=== PATIENT | male | born 2000 | race African-American/Black ===

== ENCOUNTER 2020-10-01 23:44 | Emergency (ER) | payer MEDICAID, OTHER ==
[~2020-10-01] VITALS: Ht 170.2 cm; Wt 160.0 kg
[~2020-10-01 23:44] MED LIST: ALBU17AE27
[2020-10-02] MEDS ORDERED: PERTUSS(ACELL),DIPH,TET VAC/PF 0.5 ML SYRINGE IM. ONE (01:30)
[2020-10-02 02:00] VITALS: BP 124/74
[2020-10-02] MEDS ORDERED: BACITRACIN 0.9 GM PACKET OINTMENT TP ONE (02:00)
== END 2020-10-02 02:40 | disposition home or self-care (01) ==
LOC: EMS 23:48
DX: S50.312A Abrasion of left elbow, initial encounter (principal); J45.909 Unspecified asthma, uncomplicated; V00.131A Fall from skateboard, initial encounter; Y93.51 Activity, roller skating (inline) and skateboarding; Y92.89 Other specified places as the place of occurrence of the external cause; Y99.8 Other external cause status
CPT/HCPCS: 90471; 90715; 99283

== ENCOUNTER 2020-12-11 21:16 | Emergency (ER) | payer MEDICAID ==
[~2020-12-11] VITALS: Ht 170.2 cm; Wt 70.5 kg
[2020-12-12] MEDS ORDERED: ACETAMINOPHEN 325 MG TABLET PO ONE
[2020-12-12 00:35] VITALS: BP 142/78
== END 2020-12-12 00:42 | disposition home or self-care (01) ==
LOC: EMS 21:19
DX: S09.90XA Unspecified injury of head, initial encounter (principal); J45.909 Unspecified asthma, uncomplicated; F17.200 Nicotine dependence, unspecified, uncomplicated; F12.90 Cannabis use, unspecified, uncomplicated; V00.131A Fall from skateboard, initial encounter; Y93.51 Activity, roller skating (inline) and skateboarding; Y92.89 Other specified places as the place of occurrence of the external cause; Y99.8 Other external cause status
CPT/HCPCS: 70450; 99284

== ENCOUNTER 2022-11-13 05:28 | Inpatient (IN) | payer MEDICAID ==
[~2022-11-13] VITALS: Ht 170.2 cm; Wt 58.1 kg
[2022-11-13] MEDS ORDERED: HALOPERIDOL LACTATE 5 MG/ML VIAL IM ONE (06:45)
[2022-11-13] MEDS ORDERED: LORazepam 2 MG/ML VIAL IM ONE (06:45)
[2022-11-13] MEDS ORDERED: DiphenhydrAMINE HCL 50 MG/ML VIAL IM ONE (06:45)
[2022-11-13] MEDS ORDERED: HALOPERIDOL LACTATE 5 MG/ML VIAL ONE (06:48)
[2022-11-13] MEDS ORDERED: LORazepam 2 MG/ML VIAL ONE (06:48)
[2022-11-13] MEDS ORDERED: DiphenhydrAMINE HCL 50 MG/ML VIAL ONE (06:48)
[2022-11-13 07:15] VITALS: BP 135/63; PULSE 83; RESP 18; TEMP 98.1
[2022-11-13 09:05] VITALS: RESP 18
[2022-11-13 12:11] LABS: GLUCOMETER DEV NAME(LOC) POC.BV
[2022-11-13 20:15] VITALS: BP 124/66; PULSE 70; RESP 18; TEMP 98.2; O2SAT 97
[2022-11-14] MEDS ORDERED: ZOLPIDEM TARTRATE 10 MG TABLET PO PRN (07:15)
[2022-11-14] MEDS ORDERED: LORazepam 2 MG TABLET PO PRN (07:15)
[2022-11-14] MEDS ORDERED: HALOPERIDOL 5 MG TABLET PO PRN (07:15)
[2022-11-14 07:52] LABS: BASOPHILS % (AUTO) 0.3 % (0.0-2.0); EOSINOPHILS % (AUTO) 1.8 % (1.0-6.0); HEMATOCRIT 40.7 % (41-53); HEMOGLOBIN 13.5 g/dL (13.5-17.5); LYMPHOCYTES # (AUTO) 2.4 K/uL (1.0-4.8); LYMPHOCYTES % (AUTO) 38.5 % (22.0-44.0); MEAN CORPUSCULAR HEMOGLOBIN 29.9 pg (26.0-34.0); MEAN CORPUSCULAR HGB CONC 33.1 G/dL (31.0-37.0); MEAN CORPUSCULAR VOLUME 90 fL (80-100); MONOCYTES # (AUTO) 0.7 K/uL (0.1-1.0); MONOCYTES % (AUTO) 10.9 % (2.0-9.0); NEUTROPHILS % (AUTO) 48.5 % (40.0-70.0); PLATELET COUNT (AUTO) 423 K/uL (150-450); RED BLOOD CELL COUNT(AUTO) 4.51 MIL/uL (4.50-5.90); RED CELL DISTRIBUTION WIDTH 13.4 % (11.5-14.5)
[2022-11-14 08:15] VITALS: BP 111/66; PULSE 83; RESP 18; TEMP 98; O2SAT 97
[2022-11-14 08:18] LABS: ALANINE AMINOTRANSFERASE 29 U/L (12-78); ALBUMIN 3.3 g/dL (3.4-5.0); ALKALINE PHOSPHATASE 55 U/L (46-116); ANION GAP 11 mmol/L (8-16); ASPARTATE AMINOTRANSFERASE 64 U/L (15-37); BILIRUBIN,TOTAL 0.6 mg/dL (0.1-1.0); CALCIUM, TOTAL 8.9 mg/dL (8.8-10.5); CARBON DIOXIDE 28 mmol/L (22-29); CHLORIDE 102 mmol/L (98-107); CHOL/HDL RATIO 5.2 (4.2-7.3); CHOLESTEROL 134 mg/dL (131-200); FREE T4 (FREE THYROXINE) 1.48 ng/dL (0.76-1.46); GLOMERULAR FILTR. RATE CALC > 60 mL/min (>60); GLUCOSE,RANDOM 95 mg/dL (70-110); HDL CHOLESTEROL 26 mg/dL (40-60); LDL CHOL (CALC.) 97 mg/dL (0-130); POTASSIUM 3.9 mmol/L (3.5-5.1); SODIUM SERUM 141 mmol/L (136-145); TOTAL PROTEIN, SERUM 7.4 g/dL (6.4-8.2); TRIGLYCERIDES 53 mg/dL (15-150)
[2022-11-14] MEDS ORDERED: NICOTINE 14 MG/24 HOUR PATCH TD PRN (12:45)
[2022-11-14] MEDS ORDERED: GuaiFENesin/D-METHORPHAN [SUGAR-FREE] 200-20MG/10 ML SYRUP UDCUP PO PRN (12:45)
[2022-11-14] MEDS ORDERED: MAG HYDROX/AL HYDROX/SIMETH ES 30 ML SUSPENSION UDCUP PO PRN (12:45)
[2022-11-14] MEDS ORDERED: DOCUSATE SODIUM 100 MG CAPSULE PO PRN (12:45)
[2022-11-14] MEDS ORDERED: LOPERAMIDE HCL 2 MG CAPSULE PO PRN (12:45)
[2022-11-14] MEDS ORDERED: ALBUTEROL SULFATE HFA 90 MCG/PUFF 8 GM INHALER IH PRN (12:45)
[2022-11-14] MEDS ORDERED: MAGNESIUM HYDROXIDE SUSPENSION 30 ML UDCUP PO PRN (12:45)
[2022-11-14] MEDS ORDERED: CloNIDine HCL 0.1 MG TABLET PO PRN (12:45)
[2022-11-14] MEDS ORDERED: ONDANSETRON HCL 4 MG TABLET PO PRN (12:45)
[2022-11-14] MEDS ORDERED: PETROLATUM,WHITE 28 GM JELLY TP PRN (12:45)
[2022-11-14] MEDS ORDERED: IBUPROFEN 400 MG TABLET PO PRN (12:45)
[2022-11-14] MEDS ORDERED: ACETAMINOPHEN 325 MG TABLET PO PRN (12:45)
[2022-11-14] MEDS: OMEGA-3/DHA/EPA/FISH OIL 1,000 MG CAPSULE PO SCH (14:22)
[2022-11-14] MEDS: OLANZapine 5 MG TABLET PO SCH (17:00)
[2022-11-14 20:26] VITALS: BP 101/60; PULSE 71; RESP 18; TEMP 97.6; O2SAT 99
[2022-11-15 08:43] VITALS: RESP 18
[2022-11-15] MEDS: OLANZapine 5 MG TABLET PO SCH ×2 (09:00→17:21)
[2022-11-15] MEDS: OMEGA-3/DHA/EPA/FISH OIL 1,000 MG CAPSULE PO SCH (09:13)
[2022-11-15 09:23] VITALS: BP 110/64; PULSE 61; RESP 17; TEMP 97.5; O2SAT 98
[2022-11-15 21:10] VITALS: BP 108/75; PULSE 77; TEMP 98.2; O2SAT 100
[2022-11-16 08:43] VITALS: BP 110/53; PULSE 60; RESP 17; TEMP 98; O2SAT 100
[2022-11-16] MEDS: OLANZapine 5 MG TABLET PO SCH ×2 (09:00→17:00)
[2022-11-16] MEDS: CEPHALEXIN MONOHYDRATE 500 MG CAPSULE PO SCH ×3 (09:00→17:00)
[2022-11-16 09:07] LABS: APPEARANCE,URINE CLEAR (CLEAR); BILIRUBIN,URINE NEGATIVE (NEGATIVE); GLUCOSE, URINE (UA) NEGATIVE (NEGATIVE); KETONES,URINE NEGATIVE (NEGATIVE); LEUKOCYTE ESTERASE ,URINE SMALL (NEGATIVE); NITRATE,URINE NEGATIVE (NEGATIVE); OCCULT BLOOD,URINE LARGE (NEGATIVE); PH,URINE 7.5 (5.0-8.0); PROTEIN,URINE NEGATIVE (NEGATIVE); UROBILINOGEN,URINE <=1.0 mg/dL (<=1.0)
[2022-11-16 09:13] LABS: AMPHET/METH SCREEN,URINE NEGATIVE (NEGATIVE); BARBITURATE SCREEN, URINE NEGATIVE (NEGATIVE); BENZODIAZEPINES SCREEN,URINE NEGATIVE (NEGATIVE); CANNABINOID SCREEN,URINE NEGATIVE (NEGATIVE); COCAINE SCREEN,URINE NEGATIVE (NEGATIVE); METHADONE SCREEN, URINE NEGATIVE (NEGATIVE); OPIATE SCREEN,URINE NEGATIVE (NEGATIVE); PHENCYCLIDINE SCREEN,URINE NEGATIVE (NEGATIVE)
[2022-11-16 09:59] LABS: BACTERIA,URINE None Seen /HPF (None Seen); WBC,URINE 0-2 /HPF (0-5)
[2022-11-16] MEDS: OMEGA-3/DHA/EPA/FISH OIL 1,000 MG CAPSULE PO SCH (10:06)
[2022-11-16 20:56] VITALS: BP 111/69; PULSE 67; RESP 18; TEMP 98.1; O2SAT 96
[2022-11-17] MEDS: OMEGA-3/DHA/EPA/FISH OIL 1,000 MG CAPSULE PO SCH (08:42)
[2022-11-17 08:47] VITALS: BP 108/58; PULSE 66; RESP 17; TEMP 98.2; O2SAT 100
[2022-11-17] MEDS: CEPHALEXIN MONOHYDRATE 500 MG CAPSULE PO SCH ×3 (09:00→17:00)
[2022-11-17] MEDS: OLANZapine 5 MG TABLET PO SCH ×2 (09:00→17:00)
[2022-11-17 20:52] VITALS: BP 111/68; PULSE 67; RESP 19; TEMP 98.1; O2SAT 99
[2022-11-18 08:30] VITALS: BP 107/68; PULSE 68; RESP 18; TEMP 98.4; O2SAT 99
[2022-11-18] MEDS: CEPHALEXIN MONOHYDRATE 500 MG CAPSULE PO SCH ×4 (08:56→18:16)
[2022-11-18] MEDS: OLANZapine 5 MG TABLET PO SCH ×3 (08:56→18:16)
[2022-11-18] MEDS: OMEGA-3/DHA/EPA/FISH OIL 1,000 MG CAPSULE PO SCH (08:56)
[2022-11-18 20:35] VITALS: BP 113/66; PULSE 60; RESP 17; TEMP 97.7; O2SAT 98
[2022-11-19 08:22] VITALS: BP 106/66; PULSE 63; RESP 16; TEMP 98.6; O2SAT 95
[2022-11-19] MEDS: OMEGA-3/DHA/EPA/FISH OIL 1,000 MG CAPSULE PO SCH (08:30)
[2022-11-19] MEDS: CEPHALEXIN MONOHYDRATE 500 MG CAPSULE PO SCH ×3 (08:31→16:03)
[2022-11-19] MEDS: OLANZapine 5 MG TABLET PO SCH ×2 (08:31→16:03)
[2022-11-19 22:45] VITALS: BP 109/71; PULSE 68; RESP 18; TEMP 98.1
[2022-11-20 08:27] VITALS: BP 127/78; PULSE 60; RESP 18; TEMP 97.5; O2SAT 99
[2022-11-20] MEDS: CEPHALEXIN MONOHYDRATE 500 MG CAPSULE PO SCH ×2 (08:27→13:06)
[2022-11-20] MEDS: OLANZapine 5 MG TABLET PO SCH (08:27)
[2022-11-20] MEDS: OMEGA-3/DHA/EPA/FISH OIL 1,000 MG CAPSULE PO SCH (08:27)
[2022-11-20] MEDS ORDERED: CEPH-558 PO (16:34)
[2022-11-20] MEDS ORDERED: OLAN5TAB52 PO (16:34)
== END 2022-11-20 17:33 | disposition left against medical advice (07) | DRG 751 ==
LOC: B3A 06:48
PROVIDERS: ADMIT Psychiatry & Neurology Child & Adolescent Psychiatry; ATTEND Psychiatry & Neurology Child & Adolescent Psychiatry
DX: F29 Unspecified psychosis not due to a substance or known physiological condition (principal); F41.9 Anxiety disorder, unspecified; J45.909 Unspecified asthma, uncomplicated; Z20.822 Contact with and (suspected) exposure to COVID-19; Z53.21 Procedure and treatment not carried out due to patient leaving prior to being seen by health care provider; G47.00 Insomnia, unspecified; Z79.899 Other long term (current) drug therapy
CPT/HCPCS: 80053; 80061; 80307; 81001; 84439; 84443; 85025; J1200; J1630; J2060

== ENCOUNTER 2024-03-18 13:40 | Inpatient (IN) | payer SELFPAY ==
[~2024-03-18] VITALS: Ht 170.2 cm; Wt 58.1 kg
[2024-03-18 13:09] VITALS: BP 143/83; PULSE 100; RESP 20; TEMP 97.9; O2SAT 98
[~2024-03-18 13:40] MED LIST changes: -ALBU17AE27; +CEPH-558 PO; +OLAN5TAB52 PO
[2024-03-18 19:36] VITALS: BP 125/54; PULSE 111; RESP 16; TEMP 97.3; O2SAT 97
[2024-03-19 07:17] VITALS: RESP 18
[2024-03-19 08:33] VITALS: BP 126/88; PULSE 100; RESP 16; TEMP 98.4; O2SAT 100
[2024-03-19] MEDS: LORazepam 2 MG TABLET PO PRN (15:21)
[2024-03-19] MEDS ORDERED: IBUPROFEN 600 MG TABLET PO PRN (15:30)
[2024-03-19] MEDS ORDERED: ACETAMINOPHEN 325 MG TABLET PO PRN (15:30)
[2024-03-19] MEDS: HALOPERIDOL 5 MG TABLET PO PRN (16:07)
[2024-03-19] MEDS: OLANZapine 5 MG TABLET PO SCH (16:07)
[2024-03-19 20:00] VITALS: RESP 16
[2024-03-20 09:23] VITALS: BP 121/71; PULSE 94; RESP 17; TEMP 98.3; O2SAT 99
[2024-03-20 09:34] LABS: HEMOGLOBIN A1C 5.2 % (3.8-5.6)
[2024-03-20 09:52] LABS: ALANINE AMINOTRANSFERASE 22 U/L (12-78); ALBUMIN 4.2 g/dL (3.4-5.0); ALKALINE PHOSPHATASE 71 U/L (46-116); ANION GAP 4 mmol/L (8-16); ASPARTATE AMINOTRANSFERASE 27 U/L (15-37); BILIRUBIN,TOTAL 0.8 mg/dL (0.1-1.0); CALCIUM, TOTAL 9.3 mg/dL (8.8-10.5); CARBON DIOXIDE 31 mmol/L (22-29); CHLORIDE 100 mmol/L (98-107); CHOL/HDL RATIO 2.5 (4.2-7.3); CHOLESTEROL 146 mg/dL (131-200); CREATININE 1.07 mg/dL (0.60-1.30); FREE T4 (FREE THYROXINE) 1.12 ng/dL (0.76-1.46); GLOMERULAR FILTR. RATE CALC > 60 mL/min (>60); GLUCOSE,RANDOM 88 mg/dL (70-110); HDL CHOLESTEROL 59 mg/dL (40-60); LDL CHOL (CALC.) 77 mg/dL (0-130); POTASSIUM 4.3 mmol/L (3.5-5.1); SODIUM SERUM 135 mmol/L (136-145); THYROID STIMULATING HORMONE 2.85 uIU/mL (0.36-3.74); TOTAL PROTEIN, SERUM 8.2 g/dL (6.4-8.2); TRIGLYCERIDES 49 mg/dL (15-150); UREA NITROGEN, BLOOD 17 mg/dL (7-18)
[2024-03-20 10:23] LABS: BASOPHILS % (AUTO) 0.5 % (0.0-2.0); HEMATOCRIT 48.2 % (41-53); HEMOGLOBIN 16.3 g/dL (13.5-17.5); LYMPHOCYTES # (AUTO) 2.5 K/uL (1.0-4.8); LYMPHOCYTES % (AUTO) 25.9 % (22.0-44.0); MEAN CORPUSCULAR HEMOGLOBIN 31.4 pg (26.0-34.0); MEAN CORPUSCULAR HGB CONC 33.9 G/dL (31.0-37.0); MEAN CORPUSCULAR VOLUME 93 fL (80-100); MONOCYTES # (AUTO) 1.1 K/uL (0.1-1.0); MONOCYTES % (AUTO) 11.4 % (2.0-9.0); NEUTROPHILS # (AUTO) 5.9 K/uL (1.8-7.7); NEUTROPHILS % (AUTO) 61.2 % (40.0-70.0); PLATELET COUNT (AUTO) 300 K/uL (150-450); RED CELL DISTRIBUTION WIDTH 13.2 % (11.5-14.5); WHITE BLOOD COUNT (AUTO) 9.6 K/uL (4.5-11.0)
[2024-03-20 21:23] VITALS: BP 118/98; PULSE 75; RESP 18; TEMP 97.8; O2SAT 100
[2024-03-21 09:47] VITALS: BP 130/62; PULSE 61; RESP 16; TEMP 97.4; O2SAT 100
[2024-03-21 10:15] LABS: APPEARANCE,URINE CLEAR (CLEAR); BILIRUBIN,URINE NEGATIVE (NEGATIVE); COLOR,URINE COLORLESS (YELLOW); GLUCOSE, URINE (UA) NEGATIVE (NEGATIVE); KETONES,URINE NEGATIVE (NEGATIVE); LEUKOCYTE ESTERASE ,URINE NEGATIVE (NEGATIVE); NITRATE,URINE NEGATIVE (NEGATIVE); OCCULT BLOOD,URINE NEGATIVE (NEGATIVE); PH,URINE 6.5 (5.0-8.0); PH,URINE DRUG SCREEN 6.5 (5.0-8.0); PROTEIN,URINE NEGATIVE (NEGATIVE); SPECIFIC GRAVITIY, URINE 1.007 (1.003-1.030); UROBILINOGEN,URINE <=1.0 mg/dL (<=1.0)
[2024-03-21 10:25] LABS: AMPHET/METH SCREEN,URINE NEGATIVE (NEGATIVE); BARBITURATE SCREEN, URINE NEGATIVE (NEGATIVE); BENZODIAZEPINES SCREEN,URINE NEGATIVE (NEGATIVE); CANNABINOID SCREEN,URINE NEGATIVE (NEGATIVE); COCAINE SCREEN,URINE NEGATIVE (NEGATIVE); METHADONE SCREEN, URINE NEGATIVE (NEGATIVE); OPIATE SCREEN,URINE NEGATIVE (NEGATIVE); PHENCYCLIDINE SCREEN,URINE NEGATIVE (NEGATIVE)
[2024-03-21 10:26] LABS: ALCOHOL, URINE DRUG SCREEN NEGATIVE (NEGATIVE)
[2024-03-21 21:07] VITALS: BP 123/68; PULSE 77; RESP 18; TEMP 97.4; O2SAT 100
[2024-03-22 08:16] VITALS: BP 109/71; PULSE 63; RESP 17; TEMP 98.2; O2SAT 100
[2024-03-22 20:00] VITALS: BP 125/70; PULSE 71; RESP 16; TEMP 98; O2SAT 100
[2024-03-23 08:00] VITALS: BP 131/74; PULSE 65; RESP 18; TEMP 96.9; O2SAT 100
[2024-03-24 08:54] VITALS: BP 120/61; PULSE 63; RESP 17; TEMP 97.4; O2SAT 95
[2024-03-24 20:00] VITALS: BP 108/60; PULSE 74; RESP 16; TEMP 97.5; O2SAT 100
[2024-03-25] MEDS: ZOLPIDEM TARTRATE 10 MG TABLET PO PRN (01:54)
[2024-03-25 08:36] VITALS: BP 136/89; PULSE 84; RESP 16; TEMP 97.9; O2SAT 100
== END 2024-03-25 18:36 | disposition left against medical advice (07) | DRG 885 ==
LOC: B3A 17:21
PROVIDERS: ADMIT Psychiatry & Neurology Child & Adolescent Psychiatry; ATTEND Psychiatry & Neurology Child & Adolescent Psychiatry
PROC: GZ56ZZZ Individual Psychotherapy, Supportive (ICD-10-PCS; principal; 2024-03-19)
PROC: GZ52ZZZ Individual Psychotherapy, Cognitive (ICD-10-PCS; 2024-03-19)
DX: F29 Unspecified psychosis not due to a substance or known physiological condition (principal); Z53.29 Procedure and treatment not carried out because of patient's decision for other reasons; F25.9 Schizoaffective disorder, unspecified; Z79.899 Other long term (current) drug therapy
CPT/HCPCS: 80053; 80061; 80307; 81003; 83036; 84439; 84443; 85025